=== PATIENT | female | born 1970 | race Caucasian/White ===

== ENCOUNTER 2024-11-09 07:00 | Inpatient (IN) | payer OTHER ==
[~2024-11-09] VITALS: Ht 154.9 cm; Wt 75.3 kg
[2024-11-09] VITALS (13 sets, daily range): BP systolic 119–166; BP diastolic 78–113
[2024-11-09] MEDS ORDERED: HYDROmorphone HCl/Pf 1MG SYR IV ONE (09:25)
[2024-11-09] MEDS ORDERED: Ondansetron HCl 2 MG / ML 2ML Vial IV ONE (09:25)
[2024-11-09 09:32] LABS: BASOPHILS ABSOLUTE AUTO 0.02 K/mm3 (0.00-0.23); BASOPHILS PERCENT AUTO 0 % (0-2); EOSINOPHILS ABSOLUTE AUTO 0.00 K/mm3 (0.00-0.68); EOSINOPHILS PERCENT AUTO 0 % (0-6); Hematocrit 35.6 % (33.0-51.0); Hemoglobin 11.5 g/dL (11.5-16.0); IMMATURE GRAN ABSOLUTE AUTO 0.02 K/mm3 (0.00-0.10); IMMATURE GRAN PERCENT AUTO 0 % (0-1); LYMPHOCYTES ABSOLUTE AUTO 0.60 K/mm3 (0.84-5.20); LYMPHOCYTES PERCENT AUTO 10 % (21-46); MONOCYTES ABSOLUTE AUTO 0.40 K/mm3 (0.16-1.47); MONOCYTES PERCENT AUTO 7 % (4-13); Mean Corpuscular HGB Conc 32.3 g/dL (31.5-36.5); Mean Corpuscular Volume 91 fL (80-100); NEUTROPHILS ABSOLUTE AUTO 4.82 K/mm3 (1.96-9.15); NEUTROPHILS PERCENT AUTO 82 % (41-73); NRBC ABSOLUTE 0.00 K/mm3 (0.00-0.02); NRBC Auto 0.0 /100 WBC (0.0-0.2); Platelet Count 275 K/mm3 (150-400); RDW Coefficient Variation 14.7 % (11.7-14.2); RDW Standard Deviation 49.5 fL (35.1-46.3)
[2024-11-09 09:52] LABS: Alanine Aminotransfer (ALT/SGP 23.0 U/L (12-78); Albumin, Blood 3.4 g/dL (3.4-5.0); Albumin/Globulin Ratio 1.0 (0.8-1.8); Anion Gap 8.0 mmol/L (3-11); Aspartate Aminotrans (AST/SGOT 31.0 U/L (12-37); Bilirubin, Total 0.6 mg/dL (0.1-1.0); Blood Urea Nitrogen 10.0 mg/dL (8-24); CO2, Blood 28.0 mmol/L (21-32); Calcium, Blood 8.5 mg/dL (8.5-10.1); Chloride, Blood 108.0 mmol/L (98-108); Creatinine, Blood 0.63 mg/dL (0.40-1.00); Globulin, Blood 3.4 g/dL (2.2-4.0); Glucose, Blood 160.0 mg/dL (70-99); Potassium, Blood 3.5 mmol/L (3.5-5.5); Sodium, Blood 140.0 mmol/L (136-145); Total Protein, Blood 6.8 g/dL (6.4-8.2)
[2024-11-09] MEDS ORDERED: Morphine Sulfate 4 MG/1 ML Injection IV PRN (11:25)
[2024-11-09] MEDS ORDERED: Tranexamic Acid 100 ML IV SCH (11:30)
[2024-11-09] MEDS ORDERED: CeFAZolin Sodium 2,000 MG in NS 100 ML IV SCH (11:30)
[2024-11-09] MEDS ORDERED: Polyethylene Glycol 3350 17 gm PO PRN (11:40)
--- NOTE | 2024-11-09 12:17 | NUR ---
PT RECENTLY HERE BY FAMILY TAI PRESENT. History, Chart, Medications and Allergies reviewed before start of procedure. Patient confirms NPO status and agrees with scheduled surgery. Pre-Op teaching done. Pt verbalizes understanding. Lungs clear T/O to Auscultation.
[2024-11-09] MEDS ORDERED: FentaNYL Citrate 50 MCG/ML 2 ML Injection IV PRN ×3 (12:25→12:30)
[2024-11-09] MEDS ORDERED: Ondansetron HCl 2 MG / ML 2ML Vial IV PRN (12:30)
[2024-11-09] MEDS ORDERED: HYDROmorphone HCl/Pf 1MG SYR IV PRN (12:30)
[2024-11-09] MEDS ORDERED: Metoclopramide HCl 5MG / ML 2ML Vial IV PRN (12:30)
[2024-11-09] MEDS ORDERED: Midazolam HCl 1MG / ML 2ML Vial IV PRN (12:30)
--- NOTE | 2024-11-09 12:36 | NUR ---
HAS PT'S RINGS WITH HIM.
[2024-11-09] MEDS ORDERED: FentaNYL Citrate 50 MCG/ML 2 ML Injection ONE (12:46)
[2024-11-09] MEDS ORDERED: Dexamethasone Sod Phos 10 MG/ML 1ML VIAL ONE (12:47)
[2024-11-09] MEDS ORDERED: Ondansetron HCl 2 MG / ML 2ML Vial ONE (12:47)
[2024-11-09] MEDS ORDERED: Bupivacaine 0.5% W/EPI 1:200000 SDV 30 ML Vial ONE (13:39)
--- NOTE | 2024-11-09 14:09 | NUR ---
BELONGINGS BAG TAKEN TO PACU.
--- NOTE | 2024-11-09 14:49 | NUR ---
11/09/24 9223 Mayte Lau NOTED MULTIPLE ECCYMOSIS, ABRASIONS AND SKIN TEARS, PT SKIN WAS DIRTY WITH DIRT AND DEBRIS NOTED TO HER SKIN AND IN HER BED, PT STATED SHE FELL OVER BACKWARDS WHILE WALKING WITH HER
--- NOTE | 2024-11-09 16:45 | NUR ---
ASSUMPTION ASSUMED CARE OF PT @1615. AXO4. VSS. ON RABen JUSTIN PRESENT ON ADMISSION. SPOUSE IN ROOM. PT TOLERATING SMALL PO INTAKE CURRENTLY.
[2024-11-09] MEDS ORDERED: Ketorolac Tromethamine 15mg Vial IV PRN (17:20)
--- NOTE | 2024-11-09 17:43 | NUR ---
SUMMARY POST ASSUMPTION OF CARE. PT REMAINS AXO4. VSS. ADMISSION COMPLETED. POLAR PACK TO L HIP. PAIN MEDS PER EMARBen JUSTIN STILL PRESENT, PLAN TO REMOVE. PT HAS NOT BEEN OOB YET AT THIS POINT, PT STATES WILLINGNESS TO "SORTLY". SPOSE AT BEDSIDE UNTIL NOW. OTHERWISE, PT TOLERATING PO INTAKE. FLATULENT POSITIVE. CALL LIGHT WITHIN REACH.
[2024-11-10 04:52] VITALS: BP 150/83
--- NOTE | 2024-11-10 05:16 | NUR ---
SHIFT GWEN JOHNS WAS ALERT AND FULLY ORIENTED ON ASSESSMENT. PAIN WELL MANAGED AT THIS TIME. DENIES NAUSEA. CIRCULATION/ SENSATION INTACT TO BLE'S, AQUACELL DRESSINGS TO HIP C/D/I. PT JUSTIN DC'D DUE TO NO ORDER, PT ABLE TO AMBULATE AND VOID APPROPRIATELY. NO ACUTE EVENTS TONIGHT, NO NOTED CHANGES TO PT CONDITION
[2024-11-10 05:39] LABS: BASOPHILS ABSOLUTE AUTO 0.01 K/mm3 (0.00-0.23); BASOPHILS PERCENT AUTO 0 % (0-2); EOSINOPHILS ABSOLUTE AUTO 0.00 K/mm3 (0.00-0.68); EOSINOPHILS PERCENT AUTO 0 % (0-6); Hematocrit 32.5 % (33.0-51.0); Hemoglobin 10.4 g/dL (11.5-16.0); IMMATURE GRAN ABSOLUTE AUTO 0.02 K/mm3 (0.00-0.10); IMMATURE GRAN PERCENT AUTO 0 % (0-1); LYMPHOCYTES ABSOLUTE AUTO 1.36 K/mm3 (0.84-5.20); LYMPHOCYTES PERCENT AUTO 20 % (21-46); MONOCYTES ABSOLUTE AUTO 0.49 K/mm3 (0.16-1.47); MONOCYTES PERCENT AUTO 7 % (4-13); Mean Corpuscular HGB Conc 32.0 g/dL (31.5-36.5); Mean Corpuscular Volume 94 fL (80-100); NEUTROPHILS ABSOLUTE AUTO 5.05 K/mm3 (1.96-9.15); NEUTROPHILS PERCENT AUTO 73 % (41-73); NRBC ABSOLUTE 0.00 K/mm3 (0.00-0.02); NRBC Auto 0.0 /100 WBC (0.0-0.2); Platelet Count 242 K/mm3 (150-400); RDW Coefficient Variation 14.6 % (11.7-14.2); RDW Standard Deviation 50.3 fL (35.1-46.3)
[2024-11-10 07:06] VITALS: BP 126/77
[2024-11-10 07:49] LABS: Alanine Aminotransfer (ALT/SGP 41.0 U/L (12-78); Albumin, Blood 3.0 g/dL (3.4-5.0); Albumin/Globulin Ratio 0.9 (0.8-1.8); Anion Gap 8.0 mmol/L (3-11); Aspartate Aminotrans (AST/SGOT 75.0 U/L (12-37); Bilirubin, Total 1.3 mg/dL (0.1-1.0); Blood Urea Nitrogen 11.0 mg/dL (8-24); CO2, Blood 27.0 mmol/L (21-32); Calcium, Blood 8.4 mg/dL (8.5-10.1); Chloride, Blood 105.0 mmol/L (98-108); Creatinine, Blood 0.67 mg/dL (0.40-1.00); Globulin, Blood 3.2 g/dL (2.2-4.0); Glucose, Blood 127.0 mg/dL (70-99); Potassium, Blood 4.0 mmol/L (3.5-5.5); Sodium, Blood 136.0 mmol/L (136-145); Total Protein, Blood 6.2 g/dL (6.4-8.2)
--- NOTE | 2024-11-10 11:55 | NUR ---
ASSUMED CARE OF PT @0700 AXO4. VSS. AQUACELX2 TO L HIP CDI, NO SHADOWING NOTED. MILDLY HTN, CONTINUING WITH BASELINE. PT ANXIOUS TO GO HOME. RESIDENT TEAM HAS SEEN PT, DC ORDERS IN. PLAN TO DC ONCE DC PACKET COMPLETED.
[2024-11-10] MEDS ORDERED: OXYC5 PO (11:59)
[2024-11-10] MEDS ORDERED: ACET325 PO (11:59)
[2024-11-10] MEDS ORDERED: XARELTO10 M1 PO (12:00)
--- NOTE | 2024-11-10 13:05 | NUR ---
DC'D @9844 DC INSTRUCTIONS DELIVERED AND EDUCATED BY JAIRO Cooper RN. IN ROOM WITH INSTRUCTIONS. PT PROVIDED WITH AQUACE DRESSINGS. MEDS SENT TO [facility]. VSS. NO Acute changes from assumption note. PT OUT OF ROOM IN WHEELCHAIR DANIELLE @4362.
== END 2024-11-10 12:55 | disposition home or self-care (01) | DRG 482 ==
LOC: ER 07:00 → ERHOLD 11:24 → SURS 11:24 → ER 16:15 → SURS 11-10 12:55
PROVIDERS: Orthopaedic Surgery Sports Medicine; Physician Assistant; ADMIT Hospitalist
PROC: 0QS736Z Reposition Left Upper Femur with Intramedullary Internal Fixation Device, Percutaneous Approach (ICD-10-PCS; principal; 2024-11-09 13:00)
DX: S72.142A Displaced intertrochanteric fracture of left femur, initial encounter for closed fracture (principal); Z88.0 Allergy status to penicillin; W18.30XA Fall on same level, unspecified, initial encounter; Y92.009 Unspecified place in unspecified non-institutional (private) residence as the place of occurrence of the external cause
CPT/HCPCS: 36415; 73502; 73552; 80053; 85025; 94760; 96374; 96375; 97110; 97116; 97161; 99284-25; A9270; C1713; C1769; J0690; J1100; J1171; J1885; J2250; J2405; J2704; J3010; J7120